=== PATIENT | female | born 1990 | race Two or more races ===

== ENCOUNTER → 2018-09-15 | Outpatient (CLI) | payer OTHER | END | disposition home or self-care (01) | LOC: LAB 14:18 | PROVIDERS: ATTEND Obstetrics & Gynecology Maternal & Fetal Medicine | DX: Z11.9 Encounter for screening for infectious and parasitic diseases, unspecified (principal) | CPT/HCPCS: 36415; 86787 ==

== ENCOUNTER → 2019-02-15 | Outpatient (CLI) | payer OTHER | END | disposition home or self-care (01) | LOC: LAB 11:26 | PROVIDERS: ATTEND Obstetrics & Gynecology Maternal & Fetal Medicine | DX: Z11.9 Encounter for screening for infectious and parasitic diseases, unspecified (principal) | CPT/HCPCS: 36415; 86706 ==

== ENCOUNTER 2019-07-20 07:04 | Outpatient (CLI) | payer OTHER ==
[2019-07-20 07:21] LABS: BASOPHILS # (AUTO) 0.03 x10^3/uL (0-0.1); BASOPHILS % (AUTO) 0 % (0-1); EOSINOPHILS % (AUTO) 4 % (1-7); LYMPHOCYTES # (AUTO) 3.83 x10^3/uL (1-3.4); LYMPHOCYTES % (AUTO) 52 % (22-44); MD NO; MEAN CORPUSCULAR HEMOGLOBIN 32.6 pg (27.0-34.8); MEAN CORPUSCULAR HGB CONC 34.5 g/dL (32.4-35.8); MEAN CORPUSCULAR VOLUME 94.5 fL (80-100); MEAN PLATELET VOLUME 7.9 fL (7.4-10.4); MONOCYTES # (AUTO) 0.53 x10^3/uL (0.2-0.8); MONOCYTES % (AUTO) 7 % (2-9); NEUTROPHILS # (AUTO) 2.69 x10^3/uL (1.8-6.8); NEUTROPHILS % (AUTO) 36 % (42-75); PLATELET COUNT 239 x10^3/uL (130-400); RED BLOOD COUNT 4.67 x10^6/uL (3.82-5.3); RED CELL DISTRIBUTION WIDTH 12.2 % (9.6-15.2)
== END 2019-07-20 23:59 | disposition home or self-care (01) ==
LOC: LAB 07:04
PROVIDERS: ATTEND Obstetrics & Gynecology Maternal & Fetal Medicine
DX: Z31.41 Encounter for fertility testing (principal)
CPT/HCPCS: 36415; 84443; 85025

== ENCOUNTER 2019-07-24 13:48 | Outpatient (CLI) | payer OTHER ==
[2019-07-24 14:27] LABS: FREE T4 (FREE THYROXINE) 1.25 ng/dL (0.76-1.46)
== END 2019-07-24 23:59 | disposition home or self-care (01) ==
LOC: LAB 13:48
PROVIDERS: ATTEND Physician Assistant Medical
DX: E03.9 Hypothyroidism, unspecified (principal)
CPT/HCPCS: 84439; 84443; 84481; 86376; 86800

== ENCOUNTER → 2020-11-07 | Outpatient (CLI) | payer OTHER | END | disposition home or self-care (01) | LOC: LAB 09:28 | PROVIDERS: ATTEND Clinical Nurse Specialist Women's Health | DX: O03.9 Complete or unspecified spontaneous abortion without complication (principal) | CPT/HCPCS: 36415; 84702 ==

== ENCOUNTER → 2020-11-20 | Outpatient (CLI) | payer OTHER | END | disposition home or self-care (01) | LOC: LAB 10:17 | PROVIDERS: ATTEND Obstetrics & Gynecology Maternal & Fetal Medicine | DX: O03.9 Complete or unspecified spontaneous abortion without complication (principal) | CPT/HCPCS: 36415; 84702 ==